=== PATIENT | male | born 1940 | race Caucasian/White ===

== ENCOUNTER 2023-08-23 13:37 | Inpatient (IN) | payer MEDICARE ==
[~2023-08-23] VITALS: Ht 181.6 cm; Wt 82.9 kg
[~2023-08-23 13:37] MED LIST: DOCU-148 PO; FLUO15CR TOP; FLUO30CR3 TOP; GABA-530 PO; GENT30OI2 TOP; MULT-25 PO; ROSU5TAB43; SEMA0.258 SQ; WARF-55 PO
[2023-08-23 14:19] LABS: BASOPHILS # (AUTO) 0.1 X10'3 (0-0.2); BASOPHILS % (AUTO) 0.6 % (0-1); EOSINOPHILS % (AUTO) 9.2 % (0-6); HEMATOCRIT 43.9 % (42.0-52.0); HEMOGLOBIN 14.2 g/dl (14.0-17.9); LYMPHOCYTES # (AUTO) 2.2 X10'3 (1.1-4.8); MEAN CORPUSCULAR HEMOGLOBIN 29.1 PG (27.0-31.0); MEAN CORPUSCULAR HGB CONC 32.5 g/dL (33.0-36.5); MEAN CORPUSCULAR VOLUME 89.7 FL (78-98); MEAN PLATELET VOLUME 7.3 FL (7.4-10.4); MONOCYTES # (AUTO) 1.1 X10'3 (0-0.9); MONOCYTES % (AUTO) 10.3 % (2-12); NEUTROPHILS # (AUTO) 6.1 X10'3 (1.8-7.7); NEUTROPHILS % (AUTO) 58.9 % (42-75); PLATELET COUNT 298 X10'3 (140-440); RED BLOOD COUNT 4.89 X10'6 (4.70-6.10); RED CELL DISTRIBUTION WIDTH 14.5 % (11.5-14.5); WHITE BLOOD COUNT 10.4 X10'3 (4.5-11.0)
[2023-08-23 14:41] LABS: ALBUMIN 2.8 G/DL (3.4-5.0); ALBUMIN/GLOBULIN RATIO 0.7 (1.1-1.5); ALKALINE PHOSPHATASE 96 IU/L (46-116); ANION GAP 8 (8-16); ASPARTATE AMINO TRANSFERASE 15 U/L (10-37); BILIRUBIN,TOTAL 0.5 MG/DL (0.1-1.0); BLOOD UREA NITROGEN 19 MG/DL (7-18); BUN/CREATININE RATIO 16.1 (10.0-20.0); CALCIUM 8.3 MG/DL (8.5-10.1); CHLORIDE 104 MMOL/L (99-107); CREATININE 1.18 MG/DL (0.60-1.10); GLUCOSE 118 MG/DL (70-104); POTASSIUM 3.9 MMOL/L (3.5-5.1); SODIUM 136 MMOL/L (135-145); TOTAL CARBON DIOXIDE 23.8 MMOL/L (24-32); TOTAL PROTEIN 7.1 G/DL (6.4-8.2); eGFR 59 ML/MIN
[2023-08-23 14:43] LABS: ALANINE AMINOTRANSFERASE < 6 U/L (12-78)
[2023-08-23] MEDS ORDERED: magnesium sulf-water 2g/50mL 50 ML IV PRN (16:35)
[2023-08-23] MEDS ORDERED: potassium Cl 40MEQ/1/2NS 520ml 520 ML IV PRN (16:35)
[2023-08-23] MEDS ORDERED: mag hydrox/Alum hydrox/simeth 30ml oral suspension PO PRN (16:35)
[2023-08-23] MEDS ORDERED: magnesium sulf-water 4G/100mL 100 ML IV PRN (16:35)
[2023-08-23] MEDS ORDERED: ondansetron/PF 4mg/2ml inj IV PRN (16:35)
[2023-08-23] MEDS ORDERED: magnesium Cl slow-release 64mg tablet PO PRN (16:35)
[2023-08-23] MEDS ORDERED: potassium Cl 20 mEq SR tablet PO PRN ×2 (16:35)
[2023-08-23] MEDS ORDERED: morphine 2 MG/ML inj. syringe IV PRN (16:35)
[2023-08-23] MEDS ORDERED: magnesium hydroxide 30ml (MOM) UD suspension PO PRN (16:35)
[2023-08-23] MEDS ORDERED: acetaminophen 325mg tablet PO PRN (16:35)
[2023-08-23 17:53] LABS: D-DIMER 0.47 MG/L FEU (0-0.50); INR 1.1 INR; PROTHROMBIN TIME 11.4 SECONDS (9.0-12.0)
[2023-08-23 18:00] VITALS: BP 164/72; PULSE 82; RESP 16; TEMP 98.6; O2SAT 98
[2023-08-23 18:02] LABS: BASOPHILS # (AUTO) 0.1 X10'3 (0-0.2); BASOPHILS % (AUTO) 0.7 % (0-1); EOSINOPHILS % (AUTO) 9.8 % (0-6); HEMATOCRIT 44.2 % (42.0-52.0); HEMOGLOBIN 14.5 g/dl (14.0-17.9); LYMPHOCYTES # (AUTO) 2.1 X10'3 (1.1-4.8); LYMPHOCYTES % (AUTO) 20.8 % (21-51); MEAN CORPUSCULAR HEMOGLOBIN 29.6 PG (27.0-31.0); MEAN CORPUSCULAR HGB CONC 32.7 g/dL (33.0-36.5); MEAN CORPUSCULAR VOLUME 90.3 FL (78-98); MEAN PLATELET VOLUME 7.3 FL (7.4-10.4); MONOCYTES # (AUTO) 0.9 X10'3 (0-0.9); MONOCYTES % (AUTO) 8.9 % (2-12); NEUTROPHILS % (AUTO) 59.8 % (42-75); PLATELET COUNT 296 X10'3 (140-440); RED CELL DISTRIBUTION WIDTH 14.7 % (11.5-14.5); WHITE BLOOD COUNT 10.1 X10'3 (4.5-11.0)
[2023-08-23] MEDS ORDERED: HYDR-3965 (18:08)
[2023-08-23] MEDS ORDERED: APIX5TAB3 (18:08)
[2023-08-23] MEDS ORDERED: GABA-530 PO (18:08)
[2023-08-23] MEDS: HYDROcodone/acetaminophen 5mg/325mg tablet PO PRN (19:49)
[2023-08-23] MEDS: TAZOBACTAM IV SCH (19:52)
[2023-08-23] MEDS: normal saline 1000ml 1,000 ML IV SCH (19:52)
[2023-08-23] MEDS: SODIUM CHLORIDE IV SCH (19:52)
[2023-08-23] MEDS: CEFTOLOZANE IV SCH (19:52)
[2023-08-23] MEDS: K and/or MAG REPLACEMENT MC SCH (20:00)
[2023-08-23] MEDS ORDERED: warfarin 5mg tablet PO ONE (21:00)
[2023-08-23 22:00] VITALS: BP 121/61; PULSE 90; RESP 16; TEMP 98.2; O2SAT 95
[2023-08-23] MEDS: apixaban 5mg tablet PO SCH (22:10)
[2023-08-23] MEDS: docusate sod 100mg capsule PO SCH (22:10)
[2023-08-24] MEDS: CEFTOLOZANE IV SCH (03:57)
[2023-08-24] MEDS: SODIUM CHLORIDE IV SCH (03:57)
[2023-08-24] MEDS: TAZOBACTAM IV SCH (03:57)
[2023-08-24] MEDS: diphenhydrAMINE 25mg capsule PO PRN (04:26)
[2023-08-24 06:00] VITALS: BP 116/44; PULSE 66; RESP 16; TEMP 98.3; O2SAT 97
[2023-08-24 07:25] LABS: BASOPHILS # (AUTO) 0.1 X10'3 (0-0.2); BASOPHILS % (AUTO) 0.9 % (0-1); EOSINOPHILS # (AUTO) 0.9 X10'3 (0-0.9); EOSINOPHILS % (AUTO) 10.4 % (0-6); HEMATOCRIT 41.8 % (42.0-52.0); HEMOGLOBIN 13.7 g/dl (14.0-17.9); LYMPHOCYTES # (AUTO) 1.8 X10'3 (1.1-4.8); LYMPHOCYTES % (AUTO) 20.5 % (21-51); MEAN CORPUSCULAR HEMOGLOBIN 29.3 PG (27.0-31.0); MEAN CORPUSCULAR HGB CONC 32.7 g/dL (33.0-36.5); MEAN CORPUSCULAR VOLUME 89.6 FL (78-98); MEAN PLATELET VOLUME 7.5 FL (7.4-10.4); MONOCYTES # (AUTO) 1.1 X10'3 (0-0.9); MONOCYTES % (AUTO) 12.2 % (2-12); NEUTROPHILS # (AUTO) 4.9 X10'3 (1.8-7.7); PLATELET COUNT 263 X10'3 (140-440); RED BLOOD COUNT 4.67 X10'6 (4.70-6.10); RED CELL DISTRIBUTION WIDTH 14.6 % (11.5-14.5); WHITE BLOOD COUNT 8.7 X10'3 (4.5-11.0)
[2023-08-24 07:33] LABS: INR 1.1 INR; PROTHROMBIN TIME 11.4 SECONDS (9.0-12.0)
[2023-08-24 07:57] LABS: ALANINE AMINOTRANSFERASE 20 U/L (12-78); ALBUMIN 2.6 G/DL (3.4-5.0); ALBUMIN/GLOBULIN RATIO 0.7 (1.1-1.5); ALKALINE PHOSPHATASE 87 IU/L (46-116); ANION GAP 9 (8-16); ASPARTATE AMINO TRANSFERASE 16 U/L (10-37); BILIRUBIN,TOTAL 0.6 MG/DL (0.1-1.0); BLOOD UREA NITROGEN 17 MG/DL (7-18); BUN/CREATININE RATIO 19.5 (10.0-20.0); CALCIUM 8.4 MG/DL (8.5-10.1); CHLORIDE 106 MMOL/L (99-107); CREATININE 0.87 MG/DL (0.60-1.10); GLUCOSE 105 MG/DL (70-104); MAGNESIUM 2.2 MG/DL (1.5-2.4); POTASSIUM 4.2 MMOL/L (3.5-5.1); SODIUM 139 MMOL/L (135-145); TOTAL CARBON DIOXIDE 24.3 MMOL/L (24-32); TOTAL PROTEIN 6.6 G/DL (6.4-8.2); eCRCL 73 ML/MIN; eGFR 84 ML/MIN
[2023-08-24 08:00] VITALS: RESP 16
[2023-08-24 10:00] VITALS: BP 99/42; PULSE 72; RESP 16; TEMP 98; O2SAT 94
[2023-08-24] MEDS: lactose-reduced food (Ensure High Protein) 237ml bottle PO SCH (12:30)
[2023-08-24] MEDS: ceftolozone/tazobactam inj. 1.5 GM in normal saline 100ml IV soln 100 ML IV SCH (16:35)
[2023-08-24] MEDS: amoxicillin 250mg capsule PO SCH (16:35)
[2023-08-24] MEDS: JUVEN Smoothie Arginine/Glut./Ca2+Bmb (Juven 19.3pkt) 240ml cup PO SCH (17:30)
[2023-08-24 18:00] VITALS: BP 138/77; PULSE 77; RESP 18; TEMP 98.6; O2SAT 96
[2023-08-24] MEDS: zinc oxide ointment 30gm tube TP SCH (20:00)
[2023-08-24 22:00] VITALS: BP 107/67; PULSE 79; RESP 16; TEMP 98.3; O2SAT 96
[2023-08-24] MEDS: Dakins solution (1/4 strength) 473ml solution TP SCH (22:02)
[2023-08-25 06:00] VITALS: BP 139/73; PULSE 84; RESP 16; TEMP 97.7; O2SAT 96
[2023-08-25 07:13] LABS: BASOPHILS # (AUTO) 0.1 X10'3 (0-0.2); BASOPHILS % (AUTO) 0.7 % (0-1); EOSINOPHILS % (AUTO) 11.8 % (0-6); HEMATOCRIT 41.3 % (42.0-52.0); HEMOGLOBIN 13.5 g/dl (14.0-17.9); LYMPHOCYTES # (AUTO) 1.9 X10'3 (1.1-4.8); LYMPHOCYTES % (AUTO) 22.7 % (21-51); MEAN CORPUSCULAR HEMOGLOBIN 29.3 PG (27.0-31.0); MEAN CORPUSCULAR HGB CONC 32.6 g/dL (33.0-36.5); MONOCYTES # (AUTO) 0.9 X10'3 (0-0.9); MONOCYTES % (AUTO) 11.2 % (2-12); NEUTROPHILS # (AUTO) 4.4 X10'3 (1.8-7.7); NEUTROPHILS % (AUTO) 53.6 % (42-75); PLATELET COUNT 262 X10'3 (140-440); RED CELL DISTRIBUTION WIDTH 14.5 % (11.5-14.5); WHITE BLOOD COUNT 8.2 X10'3 (4.5-11.0)
[2023-08-25 07:25] LABS: INR 1.1 INR; PROTHROMBIN TIME 11.3 SECONDS (9.0-12.0)
[2023-08-25 07:31] LABS: ALANINE AMINOTRANSFERASE 20 U/L (12-78); ALBUMIN 2.5 G/DL (3.4-5.0); ALBUMIN/GLOBULIN RATIO 0.6 (1.1-1.5); ALKALINE PHOSPHATASE 81 IU/L (46-116); ANION GAP 8 (8-16); ASPARTATE AMINO TRANSFERASE 13 U/L (10-37); BILIRUBIN,TOTAL 0.5 MG/DL (0.1-1.0); BLOOD UREA NITROGEN 18 MG/DL (7-18); BUN/CREATININE RATIO 19.6 (10.0-20.0); CALCIUM 8.2 MG/DL (8.5-10.1); CHLORIDE 106 MMOL/L (99-107); CREATININE 0.92 MG/DL (0.60-1.10); GLUCOSE 113 MG/DL (70-104); POTASSIUM 4.3 MMOL/L (3.5-5.1); SODIUM 139 MMOL/L (135-145); TOTAL CARBON DIOXIDE 25.5 MMOL/L (24-32); TOTAL PROTEIN 6.6 G/DL (6.4-8.2); eCRCL 69 ML/MIN; eGFR 79 ML/MIN
[2023-08-25] MEDS: multivitamins, therapeutics tablet PO SCH (07:58)
[2023-08-25 08:00] VITALS: RESP 16
[2023-08-25 10:00] VITALS: BP 123/69; PULSE 89; RESP 18; TEMP 97.8; O2SAT 97
[2023-08-25] MEDS ORDERED: morphine 2 MG/ML inj. syringe IV PRN (10:45)
[2023-08-25] MEDS: morphine ER 15mg tablet PO SCH (15:37)
[2023-08-25 18:00] VITALS: BP 122/69; PULSE 76; RESP 16; TEMP 97.8; O2SAT 96
[2023-08-25 22:00] VITALS: BP 125/57; PULSE 80; RESP 18; TEMP 98.3; O2SAT 95
[2023-08-26 04:10] LABS: BASOPHILS # (AUTO) 0.1 X10'3 (0-0.2); BASOPHILS % (AUTO) 0.9 % (0-1); EOSINOPHILS # (AUTO) 1.2 X10'3 (0-0.9); EOSINOPHILS % (AUTO) 15.3 % (0-6); HEMATOCRIT 40.4 % (42.0-52.0); HEMOGLOBIN 13.3 g/dl (14.0-17.9); LYMPHOCYTES # (AUTO) 1.8 X10'3 (1.1-4.8); LYMPHOCYTES % (AUTO) 22.4 % (21-51); MEAN CORPUSCULAR HGB CONC 32.9 g/dL (33.0-36.5); MEAN CORPUSCULAR VOLUME 88.1 FL (78-98); MEAN PLATELET VOLUME 6.9 FL (7.4-10.4); MONOCYTES # (AUTO) 0.9 X10'3 (0-0.9); MONOCYTES % (AUTO) 11.2 % (2-12); NEUTROPHILS % (AUTO) 50.2 % (42-75); PLATELET COUNT 266 X10'3 (140-440); RED BLOOD COUNT 4.58 X10'6 (4.70-6.10); WHITE BLOOD COUNT 7.9 X10'3 (4.5-11.0)
[2023-08-26 04:20] LABS: INR 1.1 INR; PROTHROMBIN TIME 11.6 SECONDS (9.0-12.0)
[2023-08-26 04:28] LABS: ALANINE AMINOTRANSFERASE 20 U/L (12-78); ALBUMIN 2.4 G/DL (3.4-5.0); ALBUMIN/GLOBULIN RATIO 0.6 (1.1-1.5); ALKALINE PHOSPHATASE 78 IU/L (46-116); ANION GAP 5 (8-16); ASPARTATE AMINO TRANSFERASE 13 U/L (10-37); BILIRUBIN,TOTAL 0.5 MG/DL (0.1-1.0); BLOOD UREA NITROGEN 22 MG/DL (7-18); CALCIUM 8.3 MG/DL (8.5-10.1); CHLORIDE 106 MMOL/L (99-107); GLUCOSE 108 MG/DL (70-104); POTASSIUM 4.5 MMOL/L (3.5-5.1); SODIUM 138 MMOL/L (135-145); TOTAL CARBON DIOXIDE 26.8 MMOL/L (24-32); TOTAL PROTEIN 6.3 G/DL (6.4-8.2); eCRCL 64 ML/MIN; eGFR 72 ML/MIN
[2023-08-26 06:00] VITALS: BP 113/62; PULSE 77; RESP 18; TEMP 98.3; O2SAT 97
[2023-08-26] MEDS: [UNRECOGNIZED DRUG - MIXTURE] IV SCH (07:44)
[2023-08-26 10:00] VITALS: BP 131/63; PULSE 79; RESP 18; TEMP 98.6; O2SAT 95
[2023-08-26 10:02] LABS: PROTEIN S, FREE 19 % (61-136); PROTEIN S, TOTAL 38 % (60-150)
[2023-08-26 12:38] VITALS: RESP 16
[2023-08-26 23:35] LABS: ANTITHROMBIN ACTIVITY 114 % (75-135); ANTITHROMBIN ANTIGEN 94 % (72-124)
[2023-09-01 14:55] LABS: FACTOR V LEIDEN SEE COMMENTS
== END 2023-08-26 17:00 | disposition home or self-care (01) | DRG 638 ==
LOC: ORTHO 4S 15:04
PROVIDERS: ADMIT Internal Medicine; ATTEND Internal Medicine
DX: E11.621 Type 2 diabetes mellitus with foot ulcer (principal); E11.52 Type 2 diabetes mellitus with diabetic peripheral angiopathy with gangrene; N17.0 Acute kidney failure with tubular necrosis; L97.519 Non-pressure chronic ulcer of other part of right foot with unspecified severity; Z66 Do not resuscitate; S81.801A Unspecified open wound, right lower leg, initial encounter; X58.XXXA Exposure to other specified factors, initial encounter; I25.10 Atherosclerotic heart disease of native coronary artery without angina pectoris; Z88.1 Allergy status to other antibiotic agents; Z79.899 Other long term (current) drug therapy; Z86.711 Personal history of pulmonary embolism; Z86.718 Personal history of other venous thrombosis and embolism; Z87.891 Personal history of nicotine dependence; Y93.89 Activity, other specified; Y92.89 Other specified places as the place of occurrence of the external cause; Y99.8 Other external cause status
CPT/HCPCS: 36415; 80053; 81479; 82948; 83605; 83735; 83891; 83894; 83898; 85025; 85300; 85301; 85303; 85305; 85306; 85379; 85610; 85651; 86140; 86146; 86147; 87040; 87070; 87077; 87081; 87186; 97161; 97530; A6196; A6223; A6253; A6446; A6449; G0378; J0695; J7030; Q0163